=== PATIENT | female | born 1945 | race Caucasian/White ===

== ENCOUNTER → 2025-01-29 10:26 | Outpatient (REF) | payer MEDICARE, BC, SELFPAY ==
[2025-01-29 11:10] VITALS: BP 144/63; BP_SYST 67
[2025-01-29 11:58] VITALS: BP 144/63
== END ==
LOC: RADI 10:26
PROVIDERS: ATTENDING PHYSICIAN Family Medicine
DX: E04.1 Nontoxic single thyroid nodule (principal)
CPT/HCPCS: 10005; 88173